=== PATIENT | male | born 1965 | race African-American/Black ===

== ENCOUNTER 2022-08-04 14:12 | Emergency (ER) | payer OTHER ==
[~2022-08-04] VITALS: Ht 182.9 cm; Wt 55.1 kg
[2022-08-04 14:22] VITALS: BP 155/98
[2022-08-04] MEDS ORDERED: LIDOCAINE MPF 1% 10 MG/ML VIAL INJ ONE (16:20)
[2022-08-04] MEDS ORDERED: BACITRACIN OINT 500 UNITS/GM PKT TP ONE (16:25)
[2022-08-04] MEDS ORDERED: BACI1PAC6 TP (17:04)
[2022-08-04] MEDS ORDERED: IBUP-2213 PO (17:04)
--- NOTE | 2022-08-04 17:25 | NUR ---
57 y/o male, c/o right ear lobe pain in relation to possible back of an earring is stuck in his earlobe. pt states that his earring was in for a couple months, however now has been causing him discomfort. the front part of the earring was removed, last night. states that his earlobe was bleeding earlier today when his was trying to remove the piece from his ear but with no success, denies any pus or drainage from his earlobe. a&o x4 with even and steady gait. pmh: htn nka
[2022-08-04 17:27] VITALS: BP 154/92
--- NOTE | 2022-08-04 17:27 | NUR ---
Patient discharged with v/s stable. Written and verbal after care instructions given. Patient alert, oriented and verbalized understanding of instructions. Ambulatory with steady gait. All questions addressed prior to discharge. ID band removed. Patient advised to follow up with PMD. Rx of IBUPROFEN AND BACITRACIN given. Opportunity to ask questions provided and answered.
--- NOTE | 2022-08-04 17:37 | NUR ---
The patient's care was reviewed and supervised by Eileen Mclaughlin, RN, RN.
== END 2022-08-04 17:27 | disposition home or self-care (01) ==
LOC: MED 14:12
DX: H93.8X1 Other specified disorders of right ear (principal); I10 Essential (primary) hypertension; Z79.899 Other long term (current) drug therapy
CPT/HCPCS: 10120; 70250; 99285; J2001